=== PATIENT | male | born 1955 | race Caucasian/White ===

== ENCOUNTER 2024-03-27 23:50 | Emergency (ER) | payer OTHER ==
[~2024-03-27] VITALS: Ht 185.4 cm; Wt 64.0 kg
[2024-03-28 00:20] LABS: BILIRUBIN, URINE NEGATIVE (negative); BLOOD/HGB, URINE SMALL (Negative); KETONE, URINE NEGATIVE (Negative); LEUK ESTERASE, URINE SMALL (negative); NITRITE, URINE POSITIVE (negative)
[2024-03-28 00:28] LABS: BACTERIA, URINE 1+ /hpf (negative); CASTS, URINE NONE SEEN \\lpf; COLLECTION TYPE, URINE CLEAN CATCH; CRYSTALS, URINE NONE SEEN (0-1+); EPITHELIAL CELLS, URINE SQUAMOUS 1+ /lpf (0-1+); REFLEX CULTURE, URINE Yes (No); WHITE BLOOD CELLS, URINE 21-40 /HPF (0-5)
[2024-03-28 00:33] LABS: AMPHETAMINES, URINE NEGATIVE (NEGATIVE); BARBITURATES, URINE NEGATIVE (NEGATIVE); BENZODIAZEPINE, URINE NEGATIVE (NEGATIVE); BUPRENORPHINE, URINE NEGATIVE (NEGATIVE); CANNABINOID, URINE NEGATIVE (NEGATIVE); COCAINE, URINE NEGATIVE (NEGATIVE); ECSTASY, URINE NEGATIVE (NEGATIVE); FENTANYL, URINE NEGATIVE (NEGATIVE); METHADONE, URINE NEGATIVE (NEGATIVE); OPIATES, URINE NEGATIVE (NEGATIVE); OXYCODONE, URINE NEGATIVE (NEGATIVE); PHENCYCLIDINE, URINE NEGATIVE (NEGATIVE)
[2024-03-28] MEDS ORDERED: fentaNYL citrate 100 MCG/2 ML VIAL IV ONE ×2 (00:45→05:30)
--- OUTSIDE RECORDS SUMMARY | 2024-03-28 00:51 | XMS ---
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 E.DKrista VISIT COUNT (12 MO.) 2 [facility] [address] [facility] [address] [facility] [place] TOTAL 3 NOTE: Visits indicate total known visits. ED/UCC VISIT TRACKING (12 MO.) 03/27/2024 23:51 [facility] [place] TYPE: Emergency COMPLAINT: - FALL 03/23/2024 11:24 [facility] TYPE[facility] Emergency DIAGNOSES: - Hyperglycemia, unspecified - Hypo-osmolality and hyponatremia - MEDICAL CLEARANCE FOR STEPHON 12/15/2023 21:15 [facility] OR TYPE: Emergency DIAGNOSES: - Alcohol use, unspecified with intoxication, uncomplicated - Hyperglycemia, unspecified - HIGH BLOOD SUGAR INPATIENT VISIT TRACKING (12 MO.) 03/23/2024 11:24 [facility] [place] TYPE: Medical Surgical DIAGNOSES: - Hyperglycemia, unspecified - Hypo-osmolality and hyponatremia [email or web address]
[2024-03-28 00:53] LABS: HEMATOCRIT 33.1 % (35.0-50.0); MCH 30.7 (27-36); MCHC 33.2 g/dl (30-36); MCV 92.3 fl (81-99); PLATELET COUNT 304 K/uL (140-440); RBC 3.58 M/ul (4.3-5.7); RDW 16.3 (10.5-15.0)
[2024-03-28 01:04] LABS: ALBUMIN 2.5 g/dL (3.4-5.0); ALBUMIN/GLOBULIN RATIO 0.56 (1.1-2.4); ANION GAP 15.4 (7-21); BILIRUBIN, TOTAL 0.3 ng/dL (0.2-1.0); BUN/CREATININE RATIO 7.89 (6.0-28.6); CALCIUM 8.4 mg/dL (8.5-10.1); CREATININE, SERUM 0.76 mg/dL (0.70-1.30); POTASSIUM 3.4 mmol/L (3.5-5.1)
[2024-03-28 01:16] LABS: LYMPHOCYTES, MANUAL DIFF 22; MONOCYTES, MANUAL DIFF 6; NEUTROPHILS, MANUAL DIFF 72
[2024-03-28] MEDS ORDERED: CEFTRIAXONE/SODIUM CHLORIDE 2 GM/100 ML PIGGYBACK IV ONE (01:45)
[2024-03-28] MEDS ORDERED: SODIUM CHLORIDE 0.9% 1,000 ML IV SCH (01:45)
[2024-03-28] MEDS ORDERED: INSULIN LISPRO 100 UNIT/ML ML IV ONE (01:45)
[2024-03-28 01:48] LABS: INR 1.03 (0.80-1.30); PROTIME 12.8 Sec (11.2-14.2)
[2024-03-28 05:49] VITALS: BP 137/79
== END 2024-03-28 05:52 | disposition short-term general hospital (02) ==
LOC: ED 23:50
PROVIDERS: Family Medicine
DX: S72.012A Unspecified intracapsular fracture of left femur, initial encounter for closed fracture (principal); W01.0XXA Fall on same level from slipping, tripping and stumbling without subsequent striking against object, initial encounter; E87.1 Hypo-osmolality and hyponatremia
CPT/HCPCS: 36415; 73502; 73552; 80053; 80307; 81001; 85025; 85610; 87088; 96365; 96366; 96375; 96376; 99284-25; G0480; J0696; J1815; J3010; J7030

== ENCOUNTER 2024-06-11 19:31 | Emergency (ER) | payer MEDICARE ==
[~2024-06-11] VITALS: Ht 185.4 cm; Wt 67.4 kg
--- OUTSIDE RECORDS SUMMARY | 2024-06-11 19:36 | XMS ---
PreManage Notification: [place] Security Cruise Coordinator Events No recent Security Events currently on file CRITERIA MET - 6 ED Visits in 6 Months - [facility] - 2 Visits in 30 Days CARE PROVIDERS -[facility] Dentist: Client Care Manager [facility] PHONE: [phone] -Aurelio- Dentist: Client Care Manager [facility] Dental [facility] PHONE: [phone] BETZY WATKINS Internal Medicine Current PHONE: [phone] MARLENI WALLS Nurse Practitioner: Family Current PHONE: [phone] Saray has no Care Guidelines for this patient. Gail VISIT COUNT (12 MO.) [address] [place] [address] 2 ANGELO Sidhu TOTAL 9 NOTE: Visits indicate total known visits. 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 - Type 2 diabetes mellitus with hyperglycemia - WEAKNESS 05/19/2024 01:27 [facility] [place] TYPE: Emergency COMPLAINT: - GENERAL DIAGNOSES: - GENERAL 05/13/2024 08:22 [facility] DIAGNOSES: - Alcohol abuse, uncomplicated - Alcohol use, unspecified with withdrawal delirium - Encounter for issue of repeat prescription - Other specified metabolic disorders - Other stimulant abuse, uncomplicated - Unspecified fall, initial encounter - MED REFILL 05/08/2024 17:20 [facility] [place] TYPE: Emergency DIAGNOSES: - Alcohol use, unspecified with intoxication, unspecified - Altered mental status, unspecified - UNRESPONSIVE 03/27/2024 23:51 [facility] [place] TYPE: Emergency COMPLAINT: - FALL DIAGNOSES: - Fall on same level from slipping, tripping and stumbling without subsequent striking against object, initial encounter - Hypo-osmolality and hyponatremia - Pain in left hip - Unspecified intracapsular fracture of left femur, initial encounter for closed fracture 03/23/2024 11:24 [employer] [place] TYPE: Emergency DIAGNOSES: - Hyperglycemia, unspecified - Hypo-osmolality and hyponatremia - MEDICAL CLEARANCE FOR STEPHON 12/15/2023 21:15 [employer] [facility] [place] TYPE: Emergency DIAGNOSES: - Alcohol use, unspecified with intoxication, uncomplicated - Hyperglycemia, unspecified - HIGH BLOOD SUGAR INPATIENT VISIT TRACKING (12 MO.) 05/19/2024 01:27 [facility] [place] TYPE: Medical Surgical DIAGNOSES: - Encephalopathy, unspecified - Other acidosis 05/13/2024 08:22 [facility] [place] TYPE: Medical Surgical DIAGNOSES: - Alcohol abuse, uncomplicated - Alcohol use, unspecified with withdrawal delirium - Encounter for issue of repeat prescription - Other specified metabolic disorders - Other stimulant abuse, uncomplicated - Unspecified fall, initial encounter 03/28/2024 06:19 [facility] [place] TYPE: Medical Surgical COMPLAINT: - UTI DIAGNOSES: - UTI 03/23/2024 11:24 [facility] OR TYPE: Medical Surgical DIAGNOSES: - Hyperglycemia, unspecified - Hypo-osmolality and hyponatremia [id number]
[2024-06-11] MEDS ORDERED: LANTUS SOL100 UNIT/1 SUB-Q (19:48)
[2024-06-11 20:17] VITALS: BP 146/89
== END 2024-06-11 20:18 | disposition home or self-care (01) ==
LOC: ED 19:31
DX: Z02.89 Encounter for other administrative examinations (principal); E11.65 Type 2 diabetes mellitus with hyperglycemia; Z79.4 Long term (current) use of insulin
CPT/HCPCS: 99283